=== PATIENT | male | born 1995 | race Caucasian/White ===

== ENCOUNTER 2018-01-10 01:47 | Emergency (ER) | payer OTHER ==
[2018-01-10 01:58] VITALS: BP 148/80
--- NOTE | 2018-01-10 02:23 | XRAY Report ---
Procedure Date: 01/10/2018 Accession Number: [id number] / [id number] Procedure: XR - Finger(s) LT CPT Code: FULL RESULT: EXAM: LEFT THIRD DIGIT RADIOGRAPHY EXAM DATE: 01/10/2018 02:14 AM. CLINICAL HISTORY: L eft middle finger injury. COMPARISON: None. TECHNIQUE: 3 views. FINDINGS: Bones: Normal. No fracture or bone lesion. Joints: Normal. No subluxations. Soft Tissues: Normal. No soft tissue swelling. IMPRESSION: Normal digit radiography. [facility]
--- NOTE | 2018-01-10 02:26 | ED Physician Documentation ---
History of Present Illness - Stated complaint Stated Complaint: L MIDDLE FINGER INJURY - Chief complaint Chief Complaint: Ext Problem - History obtained from History obtained from: Patient - Additonal information Additional information: 22-year-old male presents the emergency department with complaints of left middle finger injury which occurred this evening. The patient dropped a portion of a desk onto his middle finger. The patient sustained a subungual hematoma which he attempted to drain at home. The patient denies any other area of injury. The tetanus is up-to-date. No other associated injuries. Symptoms are described as mild Review of Systems Constitutional: denies: Fever, Chills Respiratory: denies: Cough Skin: denies: Lesions Musculoskeletal: reports: Extremity pain Neurologic: denies: Generalized weakness PD PAST MEDICAL HISTORY - Past Medical History Past Medical History: No - Past Surgical History Past Surgical History: No - Present Medications Home Medications: Ambulatory Orders Medication Instructions Recorded Confirmed No Known Home Medications [No 01/10/18 01/10/18 Known Home Medications] - Allergies Allergies/Adverse Reactions: Allergies Allergy/AdvReac Type Severity Reaction Status Date / Time No Known Drug Allergies Allergy Verified 01/10/18 01:57 - Social History Does the pt smoke?: No Smoking Status: Never smoker Does the pt drink ETOH?: No Does the pt have substance abuse?: No - Immunizations Immunizations are current?: Yes - POLST Patient has POLST: No PD ED PE NORMAL - General General: Alert and oriented X 3, No acute distress - HEENT HEENT: Atraumatic, PERRL, EOMI, Ears normal - Derm Derm: Normal color - Extremities Extremities: Other (The patient has full active range of motion of the left hand , there is no obvious bony deformity, no crepitus, brisk cap refill, no laceration. There is a subungual hematoma of the left middle finger. No other upper extremity injury or pain) - Neuro Neuro: Alert and oriented X 3, Normal speech Results - Vitals Vitals: Vital Signs - 24 hr 01/10/18 01:55 Temperature 36.4 C L Heart Rate 74 Respiratory 16 Rate Blood Pressure 148/80 H O2 Saturation 98 Oxygen O2 Source Room air - Rads (name of study) L finger XR Radiology: Final report received Procedures - General procedure General procedure: Left middle finger subungual hematoma drainage. A 18-gauge needle was used to puncture through the nail and a moderate amount of blood was drained. The patient had significant improvement and tolerated the procedure well. PD MEDICAL DECISION MAKING - ED course ED course: The patient sustained a subungual hematoma, no fracture. The hematoma was drained. The patient appears appropriate for discharge and follow-up with primary care. I discussed with him the possibility of his nail falling off. Discussed warning signs and recommended returning to the emergency department for worsening symptoms or any concerns - Sepsis Event Vital Signs: Vital Signs - 24 hr 01/10/18 01:55 Temperature 36.4 C L Heart Rate 74 Respiratory 16 Rate Blood Pressure 148/80 H O2 Saturation 98 Oxygen O2 Source Room air Departure - Departure Disposition: Home, Self Care Clinical Impression: Subungual hematoma Condition: Good Instructions: Hematoma Subungual, ED Hematoma Subungual Comments: Please follow-up with primary care in 1 week for recheck. Please return to the emergency department immediately for worsening symptoms or any concerns
== END 2018-01-10 02:26 | disposition home or self-care (01) ==
LOC: ED 01:47
DX: S60.132A Contusion of left middle finger with damage to nail, initial encounter (principal); W22.8XXA Striking against or struck by other objects, initial encounter
CPT/HCPCS: 11740; 73140; 99282; 99283